=== PATIENT | female | born 1945 | race Caucasian/White ===

== ENCOUNTER 2020-07-09 10:02 | Emergency (ER) | payer MEDICARE, OTHER ==
[~2020-07-09] VITALS: Ht 167.6 cm; Wt 122.5 kg
[2020-07-09 10:09] VITALS: BP 135/65
[2020-07-09] MEDS ORDERED: PERCOCET 10-321 EAC1 PO (10:13)
[2020-07-09] MEDS ORDERED: LIPITOR40 MG PO (10:14)
[2020-07-09] MEDS ORDERED: KLOR-CON M2020 MEQ PO (10:14)
[2020-07-09] MEDS ORDERED: ASA81BEC PO (10:14)
[2020-07-09] MEDS ORDERED: METFORMIN HCL500 M3 PO (10:14)
[2020-07-09] MEDS ORDERED: FUROSEMIDE 40 M40 MG PO (10:15)
[2020-07-09] MEDS ORDERED: DESYREL150 MG PO (10:15)
[2020-07-09] MEDS ORDERED: BUSPIRONE HCL5 MG PO (10:15)
[2020-07-09] MEDS ORDERED: ESCITALOPRA5 MG/5 ML PO (10:15)
[2020-07-09] MEDS ORDERED: TIZANIDINE HCL4 M1 PO (10:16)
[2020-07-09] MEDS ORDERED: AMOXICILLIN 50500 MG PO (10:47)
[2020-07-09] MEDS ORDERED: MAGIC MOUTHWASH SWISH&SPIT (10:47)
== END 2020-07-09 10:50 | disposition home or self-care (01) ==
LOC: M.ERS 10:02
DX: K02.9 Dental caries, unspecified (principal); E11.9 Type 2 diabetes mellitus without complications; M19.90 Unspecified osteoarthritis, unspecified site; G47.30 Sleep apnea, unspecified